=== PATIENT | male | born 1960 | race Caucasian/White ===

== ENCOUNTER 2017-09-14 09:33 | Inpatient (IN) | payer OTHER ==
[~2017-09-14] VITALS: Ht 185.4 cm; Wt 123.6 kg
[2017-09-14 11:43] LABS: HEMATOCRIT 33.8 % (38.0-50.0); MCH 28.8 PG (29.0-34.0); MCHC 32.2 G/DL (30.0-36.0); MCV 89.4 FL (86-99); MEAN PLAT.VOLUME 11.3 uM^3 (9.0-12.4); PLATELET COUNT 147 K/uL (156-360); RBC DIS.WIDTH-SD 45.7 % (39-53); RED BLOOD COUNT 3.78 M/uL (4.00-5.50); WHITE BLOOD COUNT 8.7 K/uL (4.1-10.2)
[2017-09-14 11:53] LABS: CHLORIDE 100 mEq/L (99-109); POTASSIUM 4.2 mEq/L (3.7-5.4); SODIUM 136 mEq/L (136-147)
[2017-09-14 11:55] LABS: GLUCOSE 115 mg/dL (70-99)
[2017-09-14 11:56] LABS: ANION GAP 12 MEQ/L (2-14)
[2017-09-14 11:59] LABS: GFR ESTIMATE (CALCULATED) 51 mL/min/; UREA NITROGEN (BUN) 26 mg/dL (9-23)
[2017-09-14 17:40] VITALS: BP 116/63
[2017-09-14 23:43] VITALS: BP 123/65
[2017-09-15 04:00] VITALS: BP 131/72
[2017-09-15 06:13] LABS: HEMATOCRIT 33.2 % (38.0-50.0); MCH 29.1 PG (29.0-34.0); MCHC 31.9 G/DL (30.0-36.0); MCV 91.2 FL (86-99); PLATELET COUNT 123 K/uL (156-360); RBC DIS.WIDTH-CV 14.3 % (11.8-14.6); RBC DIS.WIDTH-SD 47.8 % (39-53); RED BLOOD COUNT 3.64 M/uL (4.00-5.50); WHITE BLOOD COUNT 5.6 K/uL (4.1-10.2)
[2017-09-15 06:35] LABS: ANION GAP 8 MEQ/L (2-14); CHLORIDE 105 MEQ/L (99-109); GFR ESTIMATE (CALCULATED) > 59 mL/min/; GLUCOSE 81 mg/dL (70-99); POTASSIUM 4.2 MEQ/L (3.7-5.4); SAMPLE HEMOLYSIS CHECK 0; SAMPLE ICTERIC CHECK 0; SAMPLE LIPEMIA CHECK 0; SODIUM 138 MEQ/L (136-147); UREA NITROGEN (BUN) 27 mg/dL (9-23)
[2017-09-15 07:51] VITALS: BP 127/71
[2017-09-15] MEDS ORDERED: METHADONE10 MG PO (08:52)
[2017-09-15] MEDS ORDERED: LISINOPRIL40 MG PO (08:56)
[2017-09-15] MEDS ORDERED: FOCALIN XR15 M1 PO (09:06)
[2017-09-15] MEDS ORDERED: MELOXICAM15 MG PO (09:09)
[2017-09-15] MEDS ORDERED: GLUCOPHAGE500 MG PO (09:09)
[2017-09-15] MEDS ORDERED: LYRICA150 MG PO (09:10)
[2017-09-15] MEDS ORDERED: CLONIDINE HCL0.2 MG PO (09:11)
[2017-09-15] MEDS ORDERED: AMLODIPINE BESYL5 MG PO (09:12)
[2017-09-15] MEDS ORDERED: CYCLOBENZAPRINE10 MG PO (09:13)
[2017-09-15 09:42] LABS: Estimated Average Glucose 131 mg/dL (70-123); HEMOGLOBIN A1c (GLYCOHEMOGLOB) 6.2 % HGB (Below 5.7)
[2017-09-15 11:44] LABS: POINT-OF-CARE METER ID UU13113774
[2017-09-15 13:29] VITALS: BP 112/63
[2017-09-15 16:08] VITALS: BP 127/71
[2017-09-15 17:21] LABS: POINT-OF-CARE METER ID UU13113675
[2017-09-15 19:48] VITALS: BP 134/69
[2017-09-15 21:37] LABS: POINT-OF-CARE METER ID UU13113774
[2017-09-16 00:40] VITALS: BP 141/73
[2017-09-16 06:01] LABS: POINT-OF-CARE METER ID UU13113725
[2017-09-16 08:15] VITALS: BP 112/72
[2017-09-16 08:56] LABS: POINT-OF-CARE METER ID UU13113675
[2017-09-16 11:39] LABS: POINT-OF-CARE METER ID UU13113725
[2017-09-16 15:41] VITALS: BP 121/69
[2017-09-16 16:31] LABS: POINT-OF-CARE METER ID UU13113725
[2017-09-16 21:27] LABS: POINT-OF-CARE METER ID UU13113725
[2017-09-16 23:50] VITALS: BP 120/66
[2017-09-17] VITALS: BP 136/74
[2017-09-17 05:34] LABS: HEMATOCRIT 30.6 % (38.0-50.0); MCH 28.2 PG (29.0-34.0); MCHC 31.4 G/DL (30.0-36.0); MEAN PLAT.VOLUME 11.2 uM^3 (9.0-12.4); PLATELET COUNT 147 K/uL (156-360); RBC DIS.WIDTH-CV 13.8 % (11.8-14.6); RBC DIS.WIDTH-SD 45.6 % (39-53); WHITE BLOOD COUNT 4.2 K/uL (4.1-10.2)
[2017-09-17 06:03] LABS: ANION GAP 5 MEQ/L (2-14); CHLORIDE 108 MEQ/L (99-109); GFR ESTIMATE (CALCULATED) > 59 mL/min/; GLUCOSE 93 mg/dL (70-99); POTASSIUM 4.3 MEQ/L (3.7-5.4); SAMPLE HEMOLYSIS CHECK 0; SAMPLE ICTERIC CHECK 0; SAMPLE LIPEMIA CHECK 0; SODIUM 138 MEQ/L (136-147); UREA NITROGEN (BUN) 21 mg/dL (9-23)
[2017-09-17 06:11] LABS: POINT-OF-CARE METER ID UU13113725
[2017-09-17 08:15] VITALS: BP 132/79
[2017-09-17 11:34] LABS: POINT-OF-CARE METER ID UU13113725
[2017-09-17] MEDS ORDERED: BACTRIM,SEPT1 TABLET PO (13:51)
[2017-09-17] MEDS ORDERED: XARELTO20 MG PO (14:30)
[2017-09-17] MEDS ORDERED: XARELTO15 MG PO (14:30)
[2017-09-17 16:51] LABS: POINT-OF-CARE METER ID UU13113725
[2017-09-17 16:52] VITALS: BP 130/69
[2017-09-17 21:26] LABS: POINT-OF-CARE METER ID UU13113725
[2017-09-18] VITALS: BP 140/70
[2017-09-18 06:47] LABS: POINT-OF-CARE METER ID UU13113725
[2017-09-18 07:15] VITALS: BP 142/81
[2017-09-18 07:30] VITALS: BP 142/81
[2017-09-18 11:33] LABS: POINT-OF-CARE METER ID UU13113725
== END 2017-09-18 16:56 | disposition home health service (06) | DRG 253 ==
LOC: EME 09:33 → SDC 14:37 → ENRESERV 15:44 → 2SOUTH 15:45 → 5EAST 15:45 → ENRESERV 16:00 → 5EAST 17:36
PROVIDERS: Nurse Practitioner Family; Surgery
DX: E11.52 Type 2 diabetes mellitus with diabetic peripheral angiopathy with gangrene (principal); I70.262 Atherosclerosis of native arteries of extremities with gangrene, left leg; E11.69 Type 2 diabetes mellitus with other specified complication; M86.172 Other acute osteomyelitis, left ankle and foot; L03.116 Cellulitis of left lower limb; M86.672 Other chronic osteomyelitis, left ankle and foot; S97.82XA Crushing injury of left foot, initial encounter; W20.8XXA Other cause of strike by thrown, projected or falling object, initial encounter; I82.412 Acute embolism and thrombosis of left femoral vein; I10 Essential (primary) hypertension; I71.4 Abdominal aortic aneurysm, without rupture; R20.0 Anesthesia of skin; R60.9 Edema, unspecified; F17.210 Nicotine dependence, cigarettes, uncomplicated
CPT/HCPCS: 73630; 73701; 80048; 82565; 82948; 83036; 83605; 84520; 85027; 87040; 87070; 87075; 87076; 87077; 87185; 87186; 87205; 88305; 88311; 93005; 93926; 99281; 99285; C1725; C1760; C1769; C1887; C1894; J0692; J1644; J1650; J1815; J2250; J2270; J2543; J3010; J3370; J7030; J7050; S0020